=== PATIENT | male | born 1970 | race Caucasian/White ===

== ENCOUNTER → 2016-12-02 | Outpatient (CLI) | payer BC ==
--- NOTE | 2016-12-02 13:00 | PCVCIMAG ---
APPROVED REPORT Exam: Stress Echocardiogram Indication: CAD s/p PCI, LAD stent, Dyspnea, Tobacco use Stress Nurse: Ilene Beltrán RN Status: routine HR: 80 bpm Rhythm: NSR Medical History Medical History: CAD s/p stent, HTN Cardiac Risk Factors: HTN, Tobacco History (Current/Recent) Procedure The patient underwent an Exercise Stress Test using the Cedrick Protocol. Blood pressure, heart rate, and EKG were monitored. An Echocardiogram was performed by septic tank service technician in four stages in quad fashion. At peak stress, four selected images were obtained and placed side by side with resting images for comparison. Stress Test Details Stress Test: Exercise stress testing was performed using a Cedrick protocol. HR Resting HR: 80 bpmMax Heart Rate (APMHR): 172 bpm Max HR Achieved: 129 bpmTarget HR (85% APMHR): 146 bpm % of APMHR: 75 Recovery HR: 96 bpm HR response to stress: Normal HR response to stress BP Resting BP: 126/78 mmHg Max BP: 180/80 mmHg Recovery BP: 150/80 mmHg ECG Resting ECG: Sinus Rhythm Stress ECG: Sinus Rhythm ST Change: Normal Arrhythmia: None Recovery ECG: Sinus Rhythm Recovery Arrhythmia: None Clinical Reason for Termination: Maximal effort, Leg pain/Claudication Stress Symptoms: Dyspnea Exercise duration: 6 min 48 sec Highest Stage Achieved: Stage 3: 3.4 mph at 14% grade. Exercise capacity: 9.4 METs Overall Exercise Capacity for Age: Poor Pre-Stress Echo The resting Echocardiogram showed normal left ventricular contractility with an estimated Ejection Fraction of about >55%. Normal wall motion in all segments on baseline images. Post-Stress Echo The stress Echocardiogram showed normal left ventricular contractility with an estimated Ejection Fraction of about 60-65%. Normal augmentation of wall motion in all segments on post stress images. Clinical No clinical or ECG evidence for ischemia. Equivocal EKG due to patient inability to walk for long enough duration to achieve target heart rate. Conclusion Clinical Response: Non-ischemic Exercise Capacity: Average Stress ECG Response: Non-ischemic Stress Echo Images: Non-ischemic Somewhat diminished accuracy due to patient inability to achieve target heart rate due to calf pain. <Conclusion> Somewhat diminished accuracy due to patient inability to achieve target heart rate due to calf pain.
--- NOTE | 2016-12-02 17:19 | PCVCIMAG ---
EXAM: BILATERAL RENAL ULTRASOUND AND BILATERAL RENAL DUPLEX INDICATION: Hypertension FINDINGS: Right kidney: Length measures 10.1 cm. No hydronephrosis or extensive renal scarring. Right renal duplex: Adequate technical quality. 40-50% proximal renal artery stenosis. The aortic to renal artery ratio is 2.5. The renal vein is patent. Left kidney: Length measures 13.3 cm. No hydronephrosis or extensive renal scarring. Left renal duplex: Adequate technical quality. 40-50% proximal renal artery stenosis. The aortic to renal artery ratio is 2.1. The renal vein is patent. Bladder: No obvious abnormalities. IMPRESSION: Mild bilateral 40-50% proximal renal artery stenosis is not felt to be hemodynamically significant. LOC:[id number]
== END | disposition home or self-care (01) ==
LOC: PCVCIMAG 08:51
PROVIDERS: ATTEND Internal Medicine Cardiovascular Disease
DX: I25.10 Atherosclerotic heart disease of native coronary artery without angina pectoris (principal); I70.1 Atherosclerosis of renal artery; I10 Essential (primary) hypertension; I73.9 Peripheral vascular disease, unspecified; Z95.5 Presence of coronary angioplasty implant and graft; Z87.891 Personal history of nicotine dependence
CPT/HCPCS: 76770; 93325; 93351; 93975

== ENCOUNTER → 2018-03-16 | Outpatient (CLI) | payer BC ==
--- NOTE | 2018-03-16 11:04 | PCVCIMAG ---
EXAM: BILATERAL CAROTID DUPLEX INDICATION: Carotid Occlusive Disease. FINDINGS: Doppler Measurements (centimeters per second): RIGHT: Peak CCA-67, Peak ECA-74, Diastolic ICA-45, Peak ICA-96, ICA/CCA Ratio-1.4. LEFT: Peak CCA-98, Peak ECA-87, Diastolic ICA-40, Peak ICA-95, ICA/CCA Ratio-1.0. RIGHT CAROTID: The carotid bulb has moderate plaque. The proximal internal carotid artery shows <40% stenosis. The common carotid artery shows no significant stenosis. The external carotid artery shows no significant stenosis. LEFT CAROTID: The carotid bulb has mild plaque. The proximal internal carotid artery shows <40% stenosis. The common carotid artery shows no significant stenosis. The external carotid artery shows no significant stenosis. Antegrade flow in both vertebral arteries. IMPRESSION: <40% stenosis of the right internal carotid artery with moderate plaque. <40% stenosis of the left internal carotid artery with mild plaque. LOC:OFFICE
--- NOTE | 2018-03-16 11:09 | PCVCIMAG ---
EXAM: BILATERAL RENAL ULTRASOUND AND BILATERAL RENAL DUPLEX INDICATION: Hypertension. Previous bilateral renal artery stents. FINDINGS: Right kidney: Length measures 10.2. cm. No hydronephrosis or extensive renal scarring. Right renal duplex: Adequate technical quality. 70-80% proximal renal artery stenosis within prior stent. The aortic to renal artery ratio is 3.9. The renal vein is patent. A second right renal artery may be present and shows increased systolic velocity at its origin. Left kidney: Length measures 12.9 cm. No hydronephrosis or extensive renal scarring. Left renal duplex: Adequate technical quality. 70-80% proximal renal artery stenosis within prior stent. The aortic to renal artery ratio is 3.9. The renal vein is patent. Bladder: No obvious abnormalities. IMPRESSION: 70-80% restenosis of the right and left renal artery stents. Further evaluation with conventional angiography may be of value. LOC:OFFICE
--- NOTE | 2018-03-16 13:48 | PCVCIMAG ---
APPROVED REPORT Study performed: 03/16/2018 11:06:18 Exam: Stress Echocardiogram Indication: CAD s/p PCI, Renal stents,PAD,chol Patient Location: Echo lab Stress Nurse: Jocy Gonzalez RN Room #: 2 Status: routine Ht: 6 ft 1 in HR: 77 bpm BP: 120/74 mmHg Rhythm: NSR Medical History Medical History: cad,s/p mi,stent,renal stent,iliac stent Medications: Metoprolol Cardiac Risk Factors: Hyperlipidemia, Tobacco History (Current/Recent) Previous Cardiac Procedures: PCI Pretest Chest Pain Characteristics: No chest pain Procedure The patient underwent an Exercise Stress Test using the Radha Protocol. Blood pressure, heart rate, and EKG were monitored. An Echocardiogram was performed by prototype technician in four stages in quad fashion. At peak stress, four selected images were obtained and placed side by side with resting images for comparison. Stress Test Details Stress Test: Exercise stress testing was performed using a Radha protocol. HR Resting HR: 77 bpmMax Heart Rate (APMHR): 171 bpm Max HR Achieved: 122 bpmTarget HR (85% APMHR): 145 bpm % of APMHR: 71 Recovery HR: 93 bpm HR response to stress: Normal HR response to stress- submaximal stress BP Resting BP: 120/74 mmHg Max BP: 194/60 mmHg Recovery BP: 136/74 mmHg ECG Resting ECG: Sinus Rhythm with PVCs Stress ECG: Sinus Rhythm with PVCs ST Change: Non-ischemic Arrhythmia: occasional PVCs Recovery ECG: Sinus Rhythm Recovery ST Change: Non-ischemic Recovery Arrhythmia: Occasional PVCs Clinical Reason for Termination: Maximal effort Stress Symptoms: Leg Fatigue and pain Exercise duration: 6 min 9 sec Exercise capacity: 7.4 METs Overall Exercise Capacity for Age: Poor Scale: Active Angina Score: None No complications. Exercise was limited by leg pain. Stress ECG Conclusion The patient exercised according to the RADHA protocol for 6:09 mins; achieving a work level of 7.4 METS. The resting heart rate of 74 bpm sánchez to a maximum heart rate of 122 bpm. This value [id number] % of the maximal, age-predicted heart rate. The resting blood pressure of 120/74mmHg, sánchez to a maximum blood pressure of 194/60 mmHg. The exercise test was stopped due to leg pain. Pre-Stress Echo The resting Echocardiogram showed normal left ventricular contractility with an estimated Ejection Fraction of about 50-55%. Normal wall motion in all segments on baseline images. Post-Stress Echo The stress Echocardiogram showed normal left ventricular contractility with an estimated Ejection Fraction of about 55-60%. Conclusion Clinical Response: Equivocal Exercise Capacity: Below Average Stress ECG Response: Indeterminant Stress Echo Images: Indeterminant Non-diagnostic study due to inability of the patient to achieve 85% of maximal HR. <Conclusion> Non-diagnostic study due to inability of the patient to achieve 85% of maximal HR.
--- NOTE | 2018-03-17 13:36 | PCVCIMAG ---
EXAM: BILATERAL LOWER EXTREMITY ARTERIAL DUPLEX INDICATION: Peripheral Arterial Disease. Leg pain. FINDINGS: Right Leg: Satisfactory arterial waveforms throughout the common/profunda/superficial femoral, popliteal, anterior tibial, peroneal, and posterior tibial arteries. No flow limiting stenosis seen. Left Leg: Moderate stenosis common femoral artery. Profunda femoral arteries patent. Increased systolic velocity of 373 cm/s distal tonto apache superficial femoral artery consistent with 80% stenosis. Popliteal artery is patent. Anterior tibial, peroneal, and posterior tibial arteries are patent. IMPRESSION: No flow limiting stenosis in the right lower extremity. Moderate stenosis left common femoral artery. 80% stenosis distal t[place] apache left superficial femoral artery. LOC:[id number]
== END | disposition home or self-care (01) ==
LOC: PCVCIMAG 15:46
PROVIDERS: ATTEND Internal Medicine Cardiovascular Disease
DX: I65.23 Occlusion and stenosis of bilateral carotid arteries (principal); I70.1 Atherosclerosis of renal artery; I25.10 Atherosclerotic heart disease of native coronary artery without angina pectoris; F17.200 Nicotine dependence, unspecified, uncomplicated; I10 Essential (primary) hypertension; I25.2 Old myocardial infarction; I73.9 Peripheral vascular disease, unspecified
CPT/HCPCS: 76770; 93325; 93351; 93880; 93925; 93975

== ENCOUNTER → 2018-03-28 | Outpatient (CLI) | payer BC ==
[~2018-03-28] MED LIST: DIAZEPAM 10 MG TABLET. ONE; EPTIFIBATIDE BOLUS 2,000 MCG/ML 10ML VIAL. IV ONE; HEPARIN for SUB-Q USE 5,000 UNIT/ML VIAL. SQ ONE; IODIXANOL 270 MG/ML 100 ML VIAL. ONE; IOHEXOL 350 MG/ML 100 ML VIAL. ONE; IV NORMAL SALINE 1000ML BAG 1,000 ML ONE; LIDOCAINE 1%/EPI 1:100,000 20 ML VIAL. ONE; MIDAZOLAM HCL/PF 2 MG/2 ML VIAL. ONE; WATER FOR INJECTION,STERILE 10 ML IJ ONE; ceFAZolin SODIUM 1 GM VIAL ONE; fentaNYL PF VIAL 100 MCG/2 ML VIAL ONE; hydrALAZINE 20 MG/ML VIAL. ONE
--- NOTE | 2018-03-28 12:00 | PCVCINTER ---
EXAM: 1. AORTOGRAM AND BILATERAL LOWER EXTREMITY RUNOFF ANGIOGRAM 2. BILATERAL RENAL ANGIOGRAPHY 3. LEFT SUPERFICIAL FEMORAL ARTERY ATHERECTOMY AND DRUG COATED BALLOON ANGIOPLASTY. 4. SECONDARY THROMBECTOMY LEFT SUPERFICIAL FEMORAL ARTERY. 5. LEFT UPPER RENAL ARTERY ANGIOPLASTY. 6. LEFT MIDDLE RENAL ARTERY ANGIOPLASTY. INDICATION: Peripheral arterial disease. Coronary artery disease. Uncontrolled hypertension. Left leg claudication. Hypertension. Renal atherosclerosis. No prior catheter based angiographic study is available. A full diagnostic angiogram study is performed today and the decision to intervene is based on this diagnostic study. PROCEDURE: Procedure and risks of angiography intervention is appropriate including limb loss stroke and were discussed with the patient's family and consent obtained. The patient's right groin was prepped in the normal sterile fashion. IV conscious sedation was used throughout procedure with appropriate monitoring from 8:45 AM through 10:30 AM. Ultrasound was used to interrogate the right groin and showed the right common femoral artery to be patent. A permanent spot film was obtained. Under ultrasound guidance access into the right common femoral artery was obtained and a 5 Panamanian sheath was placed. Through this a 5 Panamanian flush catheter was placed into the abdominal aorta at the level of the renal arteries and AP aortogram was performed. Catheter was positioned at the aortic bifurcation and both oblique views of the pelvis were obtained. Catheter was positioned into the right external iliac artery and right leg runoff angiography was performed. Catheter was exchanged for a visceral catheter was placed into the right renal arteries and right renal angiograms obtained. Catheter was placed into the the left renal arteries and left renal angiograms were obtained. Catheter was advanced to the level of the left external iliac artery and left leg runoff angiography was obtained. Patient was given 4500 units of heparin. Angioplasty of the upper left renal artery proximally within prior stent was performed with a 4 x 2 saber RESEARCH CONSULTANT catheter. Angioplasty of the left middle renal artery proximally was performed with a 4 x 2 saber RESEARCH CONSULTANT catheter. A 6 Panamanian crossover sheath was placed via the right groin to the level of the left common femoral artery. Atherectomy of the left distal superficial femoral artery was performed with 2.0 mm [place] laser atherectomy catheter in the standard fashion. Following atherectomy small areas of thrombus were observed and because of this secondary thrombectomy throughout the left superficial femoral artery was carried out with mechanical suction thrombectomy catheter in the standard fashion. Minimal debris was removed. Following this drug coated balloon angioplasty of the left distal superficial femoral artery was carried out with a 5 x 80 [place] Chris RESEARCH CONSULTANT catheter. Follow-up angiogram was performed. Catheters and wires removed. Sheath was removed and hemostasis obtained using the FISH device. No immediate complications. FINDINGS: Aortogram: There are 2 right and 3 left renal arteries. Mild plaque infrarenal abdominal aorta without significant stenosis. Pelvis: The right and left common iliac arteries are patent. Previous stent right external iliac artery maintaining good patency. Left external iliac artery is patent. Right common femoral artery is patent. 60% stenosis origin right profunda femoral artery. Moderate plaquing left common femoral artery without significant stenosis. The profunda femoral artery is patent. Right renal artery: There are 2 right renal arteries with their origins in close proximity. One of these renal arteries has a stent proximally and this artery shows complete occlusion throughout. The second right renal artery shows mild plaque without significant stenosis. This is the dominant vessel and maintains good patency. Left renal artery: There are 3 left renal arteries, the upper 2 have been previously stented and show moderate in-stent restenosis. The lower third renal artery shows moderate plaque proximally but only minimal stenosis. Right leg: Superficial femoral artery and popliteal artery are patent. Satisfactory three-vessel runoff into the foot with the posterior tibial artery being dominant. Left le% stenosis distal superficial femoral artery. Popliteal artery shows 30% stenosis in its midportion. Three-vessel runoff into the foot with the posterior tibial artery being dominant. The dorsalis pedis is diminutive in size. Left superficial femoral artery: findings Left upper renal artery: Following procedure good patency has been restored. Left middle renal artery: Following procedure as above satisfactory patency has been restored. IMPRESSION: 85% stenosis distal left superficial femoral artery was treated as above with good patency restored. Moderate restenosis in the upper and middle left renal arteries were treated with angioplasty with satisfactory patency restored. LOC:[id number]
--- NOTE | 2018-03-28 17:58 | PCVCINTER ---
APPROVED REPORT Study performed: 03/28/2018 10:36:45 Patient Details Patient Status: Out-Patient Room #: 2 The patient is a 48 year-old Male Event Personnel Eve Katz MD, Jewel Bourne RT(R), Clotilde Ocampo RT(R)(), Kyler Ruiz RN Risk Factors Arterial HypertensionDysplipidemia (Type: 1), Peripheral Vascular Disease, Hypercholesterolemia, Last Creatanine 0.9Tobacco History (Current/Recent(w/in 1 year)) Previous Procedures/Diagnoses Previous PCI, Previous Femoral Procedure Procedure Narrative A 6F sheath was inserted into the right femoral artery. Coronary angiography was performed using coronary diagnostic catheters. The right coronary system was accessed and visualized with a JR4 catheter. The left coronary system was accessed and visualized with a JL4 catheter. The left ventricle was accessed and visualized with a Straight Pigtail catheter. Closure device was deployed with a 6 Fr FISH. The patient tolerated the procedure well and there were no complications associated with the procedure. There was no hematoma. Hemodynamics The aortic pressure is 155/78 mmHg with a mean of 110 mmHg. The left ventricular pressure is 155/3 mmHg with a mean of 106 mmHg. Conclusion #1 normal left ventricular size and systolic function EF 60% #2 left main moderate size giving rise to LAD and circumflex it is free of disease #3 LAD is mildly disease the distal vessels are attenuated no indication for intervention. 40-50% mid vessel lesion #4 circumflex OM is nondominant with mild irregularity #5 large dominant right coronary artery no occlusive disease Recommendations and plan or continue aggressive risk factor modification. There is no indication for coronary intervention.
== END | disposition home or self-care (01) ==
LOC: PCVCINTER 10:59
PROVIDERS: ATTEND Nuclear Medicine Nuclear Cardiology
DX: I70.212 Atherosclerosis of native arteries of extremities with intermittent claudication, left leg (principal); I70.1 Atherosclerosis of renal artery; I25.10 Atherosclerotic heart disease of native coronary artery without angina pectoris; I10 Essential (primary) hypertension; I70.0 Atherosclerosis of aorta
CPT/HCPCS: 36252; 37186; 37225; 37246; 37247; 75716; 76937; 93458; 99152; 99153; C1725; C1751; C1757; C1760; C1769; C1885; C1887; C1894; J0690; J1327; J1644; J2250; J3010; J3490; J7030; Q9967; J0360

== ENCOUNTER → 2018-07-25 | Outpatient (CLI) | payer BC ==
--- NOTE | 2018-07-25 09:36 | PCVCIMAG ---
EXAM: NONINVASIVE ARTERIAL EXAMINATION OF BOTH LOWER EXTREMITIES INCLUDING PRE AND POST EXERCISE PRESSURE MEASUREMENTS AND DOPPLER WAVEFORMS INDICATION: Peripheral Arterial Disease. Leg pain. FINDINGS: Right Brachial: 145 mm Hg. Right Dorsalis Pedis: 142 mm Hg. Right Posterior Tibial: 154 mm Hg. Right YURY = 1.06. Left Brachial: 138 mm Hg. Left Dorsalis Pedis: 115 mm Hg. Left Posterior Tibial: 147 mm Hg. Left YURY = 1.04. Post Exercise: Right Brachial 150 mm Hg. Right Posterior Tibial: 92 mm Hg. Left Posterior Tibial: 101 mm Hg. Right YURY = 0.61. Left YURY = 0.67. IMPRESSION: No resting ischemia in the right lower extremity. Mild exercise induced ischemia in the right lower extremity. No resting ischemia in the left lower extremity. Mild exercise induced ischemia in the left lower extremity. LOC:[id number]
--- NOTE | 2018-07-25 10:10 | PCVCIMAG ---
EXAM: BILATERAL LOWER EXTREMITY ARTERIAL DUPLEX INDICATION: Peripheral Arterial Disease. Leg pain. FINDINGS: Right Leg: Common femoral and profunda femoral arteries are patent. Very mild 40% stenosis mid yocha dehe superficial femoral artery not felt be flow-limiting. Popliteal artery is patent. The anterior tibial, peroneal, and posterior tibial arteries are patent. Left Le% stenosis common femoral artery. Superficial femoral artery shows good patency including the site of intervention distally. Popliteal artery is patent. The anterior tibial, peroneal, and posterior tibial arteries are patent. IMPRESSION: No flow limiting stenosis in the right lower extremity. No flow limiting stenosis in the left lower extremity. 50% stenosis yocha dehe left common femoral artery. LOC:[id number]
== END | disposition home or self-care (01) ==
LOC: PCVCIMAG 08:34
PROVIDERS: ATTEND Nuclear Medicine Nuclear Cardiology
DX: I73.9 Peripheral vascular disease, unspecified (principal)
CPT/HCPCS: 93924; 93925

== ENCOUNTER → 2019-02-04 | Outpatient (CLI) | payer BC ==
--- NOTE | 2019-02-04 13:09 | PCVCIMAG ---
EXAM: BILATERAL LOWER EXTREMITY ARTERIAL DUPLEX INDICATION: Peripheral Arterial Disease. Leg pain. FINDINGS: Right Leg: Satisfactory arterial waveforms throughout the common/profunda/superficial femoral, popliteal, anterior tibial, peroneal, and posterior tibial arteries. No flow limiting stenosis seen. Left Leg: Satisfactory arterial waveforms throughout the common/profunda/superficial femoral, popliteal, anterior tibial, peroneal, and posterior tibial arteries. No flow limiting stenosis seen. IMPRESSION: No flow limiting stenosis in the right lower extremity. No flow limiting stenosis in the left lower extremity. Previous distal left superficial femoral artery stent maintaining good patency. LOC:[id number]
== END | disposition home or self-care (01) ==
LOC: PCVCIMAG 09:56
PROVIDERS: ATTEND Internal Medicine Cardiovascular Disease
DX: I73.9 Peripheral vascular disease, unspecified (principal)
CPT/HCPCS: 93925